=== PATIENT | female | born 1995 | race Caucasian/White ===

== ENCOUNTER 2020-10-31 20:16 | Emergency (ER) | payer MEDICAID, SELFPAY ==
[2020-10-31 20:31] VITALS: BP 127/75; BP 136/76; PULSE 78; PULSE 97; RESP 15; TEMP 37.4; O2SAT 98; O2SAT 99; BMI 21.1
[2020-10-31 20:40] VITALS: BP 127/75; BP 136/76; PULSE 78; PULSE 97; RESP 21; TEMP 37.4; O2SAT 98; O2SAT 99; BMI 20.5
--- NOTE | 2020-10-31 20:45 | ED_ITS ---
HPI - Neuro Symptoms/Deficit General Chief Complaint: Seizure Stated Complaint: tremors Time Seen by Provider: 10/31/20 20:44 Source: patient Mode of arrival: EMS Limitations: no limitations History of Present Illness HPI Narrative: Patient's history of tremor episode since 07/2020 came from [place] had workup done and diagnosed with tremors negative for seizures was at [facility] last month left against medical advise comes here for tremors episodes since today 18:00. has taken 2 mg of Ativan so far without much relief also patient has chronic back pain had nerve stimulator placed for that. Onset (ago): hour(s) Related Data Previous Rx's Medication Instructions Recorded oxycodone 5 mg PO Q6H PRN #20 tab 11/01/20 Allergies Allergy/AdvReac Type Severity Reaction Status Date / Time No Known Allergies Allergy Verified 10/31/20 20:46 Review of Systems Review of Systems: Constitutional : No Weight loss, No Fever, No Chills ENT/Mouth : No sore throat, No Rhinorrhea Eyes: No Eye Pain, No Swelling Cardiovascular : No Chest Pain, no palpitations Respiratory : No Cough, No Sputum, no shortness of breath Gastrointestinal : no Nausea, No Vomiting, No Diarrhea, No abdominal Pain, no black stools Genitourinary : No Dysuria, No Urinary Frequency Musculoskeletal : No joint pain, No Myalgias, No Joint Swelling Skin : No Skin Lesions, No rash Neuro : No Weakness, No Numbness, No Dizziness, No Headache Psych : No Anxiety/Panic, No Depression Heme/Lymph: No Bruising, No Lymphadenopathy Endocrine : No Polyuria, No Polydipsia All other systems reviewed and are negative PMFSH Past Medical History Medical History Back pain Gastroparesis Involuntary jerky movements Social History Social History Smoking Status: Never smoker Use of substances other than those prescribed or required for medical reasons: No Advance Directives: No Advance Directives Information Provided: Yes Physical Exam Vital Signs: Vital Signs: Last Vital Signs Temp 99.4 F 10/31/20 20:40 Pulse 89 10/31/20 23:55 Resp 15 10/31/20 23:55 BP 106/68 10/31/20 23:55 Pulse Ox 96 10/31/20 23:55 Body Mass Index 20.5 Appearance: Alert. Oriented X3. No acute distress. Eyes: Pupils equal, round and reactive to light. ENT: Pharynx normal. Neck: Normal inspection. Neck supple. Patient with cervical collar in place CVS: Normal heart rate and rhythm. Pulses normal. Respiratory: No respiratory distress. Breath sounds normal. Abdomen: Soft and nontender. Bowel sounds are present, no mass palpable, no CVA tenderness Skin: Skin warm and dry. Normal skin color. Normal skin turgor. Extremities: No lower extremity edema. Neuro: Oriented X 3. No motor deficit. No sensory deficit. Involuntary tremors lasting for few seconds without any loss of consciousness++ Course Reevaluation(s) Reevaluation #1: Patient feeling much better now tremors have decreased feels okay to go home. Patient advised to follow-up with neurologist and psychiatrist Time: 00:29 MDM - Neuro Symptoms/Deficit MDM Narrative Medical decision making narrative: 22:43 Patient old records were acute reviewed from the [facility] seen by a neurologist had detailed workup done including MRI and EEG and diagnosis of psychogenic seizure was made and advised Ativan at this time patient is awake feeling better still complaining of back pain which is chronic will give her morphine for the pain Medical Records Attestation: I reviewed the patient's medical records. Lab Data Attestation: I reviewed the patient's lab results. Result diagrams: 10/31/20 21:06 10/31/20 21:06 Labs: Lab Results 10/31/20 10/31/20 Range/Units 21:06 21:06 WBC 9.3 (4.8-10.8) X10*3/uL RBC 4.03 L (4.20-5.50) X10*6/uL Hgb 11.3 L (12.0-16.0) g/dl Hct 33.9 L (37-47) % MCV 84.1 (80-98) fL MCH 28.0 (27.0-33.0) pg MCHC 33.3 (31.0-35.0) g/dl RDW 12.3 (11.0-16.0) % Plt Count 407 H (160-400) X10*3/uL MPV 9.1 L (9.4-12.3) fL Immature Gran % (Auto) 0.3 (0.0-0.4) % Neut % (Auto) 57.9 (45-73) % Lymph % (Auto) 28.4 (20-40) % [place] % (Auto) 12.0 H (2-11) % Eos % (Auto) 0.6 (0-4) % Baso % (Auto) 0.8 (0-2) % Lymph # (Auto) 2.7 (1.2-4.9) X10*3/uL [place] # (Auto) 1.1 (0.1-1.2) X10*3/uL Eos # (Auto) 0.1 (0.0-0.4) X10*3/uL Baso # (Auto) 0.1 (0.0-0.2) X10*3/uL Abs Immat Gran (auto) 0.03 (0.00-0.03) X10*3/uL Absolute Neuts (auto) 5.4 (2.0-8.3) X10*3/uL Absolute Nucleated RBC 0.000 (0.0-0.012) X10*3/uL Nucleated RBC % (auto) 0.0 (0.0-0.2) /100WBC Sodium 139 (135-145) mmol/L Potassium 4.8 (3.3-5.1) mmol/L Chloride 105 (96-108) mmol/L Carbon Dioxide 23 (22-29) mmol/L Anion Gap 16 (12-20) BUN 11 (9-16) mg/dL Creatinine 0.68 (0.5-1.4) mg/dL Estim Creat Clear Calc 108.6 Estimated GFR > 60 Random Glucose 91 (60-115) mg/dL Calcium 9.3 (8.4-10.2) mg/dL Magnesium 2.1 (1.6-2.6) mg/dL Discharge Plan Discharge Clinical Impression: Psychogenic nonepileptic seizure Patient Disposition: Home, Self-Care Instructions: Anxiety (ED), Tremors (ED) Additional Instructions: Continue Ativan Oxycodone for severe pain. Follow-up with neurologist and psychiatrist Continuar Ativan Oxicodona para el dolor intenso. Seguimiento con neur?logo y psiquiatra Prescriptions: New oxycodone 5 mg tablet 5 mg PO Q6H PRN (Reason: Moderate Pain (Scale Score 5-6)) Qty: 20 RF: 0 Referrals: Jose Bull MD [Physician] - 1 week Parul Oakley MD [Physician] - 1 week Print Language: [place]
[2020-10-31] MEDS: LORazepam 2 MG/ML VIAL IVPUSH (21:14)
[2020-10-31 21:15] LABS: MANUAL DIFF FLAG NO
--- NOTE | 2020-10-31 21:15 | PC.NURSE ---
Patient medicated per emar as noted.
[2020-10-31 21:20] LABS: Basophils Absolute Auto 0.1 X10*3/uL (0.0-0.2); Basophils Percent Auto 0.8 % (0-2); Eosinophils Absolute Auto 0.1 X10*3/uL (0.0-0.4); Eosinophils Percent Auto 0.6 % (0-4); Hematocrit 33.9 % (37-47); Hemoglobin 11.3 g/dl (12.0-16.0); Imm Gran Abs Auto 0.03 X10*3/uL (0.00-0.03); Imm Gran Pct Auto 0.3 % (0.0-0.4); Lymphocytes Absolute Auto 2.7 X10*3/uL (1.2-4.9); Lymphocytes Percent Auto 28.4 % (20-40); Mean Corpuscular HGB Conc 33.3 g/dl (31.0-35.0); Mean Corpuscular Volume 84.1 fL (80-98); Mean Platelet Volume 9.1 fL (9.4-12.3); Monocytes Absolute Auto 1.1 X10*3/uL (0.1-1.2); Neutrophils Absolute Auto 5.4 X10*3/uL (2.0-8.3); Neutrophils Percent Auto 57.9 % (45-73); Platelet Count 407 X10*3/uL (160-400); Red Blood Count 4.03 X10*6/uL (4.20-5.50); Red Cell Distribution Width 12.3 % (11.0-16.0); White Blood Count 9.3 X10*3/uL (4.8-10.8)
[2020-10-31 21:55] LABS: Anion Gap 16 (12-20); Blood Urea Nitrogen 11 mg/dL (9-16); Calcium 9.3 mg/dL (8.4-10.2); Carbon Dioxide 23 mmol/L (22-29); Chloride 105 mmol/L (96-108); Creatinine Clr Calc Pharmacy 108.6; Estimated Glomerular Filt Rate > 60; Glucose Random 91 mg/dL (60-115); Magnesium 2.1 mg/dL (1.6-2.6); Potassium 4.8 mmol/L (3.3-5.1); Sodium 139 mmol/L (135-145)
[2020-10-31 23:13] VITALS: RESP 15
[2020-10-31] MEDS: Morphine Sulfate 4 MG/ML CARTRIDGE IVPUSH (23:13)
[2020-10-31 23:55] VITALS: BP 106/68; PULSE 89; RESP 15; O2SAT 96
[2020-11-01] VITALS: BP 106/68; PULSE 89; RESP 15; O2SAT 96
== END 2020-11-01 01:17 | disposition home or self-care (01) ==
PROVIDERS: Emergency Provider Internal Medicine
DX: G40.409 Other generalized epilepsy and epileptic syndromes, not intractable, without status epilepticus (principal); Z79.899 Other long term (current) drug therapy
CPT/HCPCS: 36415; 80048; 83735; 85025; 96374; 96375; 99284; J1100; J2060; J2270